=== PATIENT | male | born 1935 | race Caucasian/White ===

== ENCOUNTER 2018-06-19 10:14 | Emergency (ER) | payer OTHER ==
[2018-06-19] MEDS ORDERED: NA CHLORIDE 0.9% 1,000 ML ONE (11:12)
--- NOTE | 2018-06-19 11:37 | RAD REPORT ---
EXAM DESCRIPTION: CT - CTHCSPWOC - 06/19/2018 11:22 am CLINICAL HISTORY: Trauma, head and neck injury. fall, syncope COMPARISON: Soft Tissue Neck Wo Contr dated 04/28/2017; Soft Tissue Neck Wo Contr dated 09/23/2016; So ft Tissue Neck W/Contr dated 06/24/2016; SOFT TISSUE NECK W CONTRAST dated 10/16/2015 TECHNIQUE: Axial 5 mm thick images of the head were obtained. Axial 2 mm thick images of the cervical spine were obtained with sagittal and coronal reconstruction images generated and reviewed. All CT scans are performed using dose optimization technique as appropriate and may include automated exposure control or mA/KV adjustment according to patient size. FINDINGS: CT HEAD WITHOUT CONTRAST: No acute hemorrhage, hydrocephalus or extra-axial collection is identified.Moderate generalized brain atrophy is present with moderate periventricular and deep white matter chronic microvascular ischemi c changes.No areas of brain edema or midline shift. The paranasal sinuses and mastoids are clear.The calvarium is intact. Atherosclerosis. CT CERVICAL SPINE WITHOUT CONTRAST: No fracture or subluxation.Mild lower cervical degenerative changes.No prevertebral soft tissues swel ling is identified. Bilateral pleural effusions noted. IMPRESSION: No acute intracranial or cervical spine findings.
--- NOTE | 2018-06-19 12:05 | RAD REPORT ---
EXAM DESCRIPTION: RAD - Chest Single View - 06/19/2018 11:54 am CLINICAL HISTORY: weakness Chest pain. COMPARISON: Chest Pa And Lat (2 Views) dated 05/21/2017; CHEST PA AND LAT 2 VIEW dated 06/13/2015; JYOTHI ST PA AND LAT 2 VIEW dated 06/06/2015; CHEST PA AND LAT 2 VIEW dated 06/04/2015 FINDINGS: Portable technique limits examination quality. Bibasilar lung opacities are present with bilateral pleural effusions. The heart is normal in size. N o displaced fractures.Aortic atherosclerosis. IMPRESSION: Bilateral pleural effusions.
[2018-06-19 12:09] LABS: Absolute Lymphocytes (CBC) 0.4 K/uL (0.7-4.9); Absolute Monocytes 0.8 K/uL (0.1-1.3); Absolute Neutrophil 9.6 K/uL (1.8-8.0); Basophils % 0.3 % (0-1.3); Eosinophils % 0.3 % (0-4.4); Hematocrit 28.6 % (39.6-49.0); Lymphocytes % 3.6 % (15.3-44.8); MCH 31.4 pg (27.0-35.0); MCV 92.6 fL (80-100); MPV 6.6 fL (7.6-11.3); RBC Red Blood Cell Count 3.09 M/uL (4.33-5.43)
[2018-06-19 12:12] LABS: Protime INR 1.1
[2018-06-19 12:44] LABS: ALT/SGPT 11 U/L (12-78); AST/SGOT 20 U/L (15-37); Albumin 2.7 g/dL (3.4-5.0); Alkaline Phosphatase 71 U/L (45-117); BUN Blood Urea Nitrogen 24 mg/dL (7-18); Bicarbonate 25 mmol/L (21-32); Bilirubin Direct < 0.1 mg/dL (0-0.2); Bilirubin Total 0.3 mg/dL (0.2-1.0); Glucose Level 111 mg/dL (74-106); Magnesium 2.4 mg/dL (1.8-2.4); NT PRO-BNP 907 pg/mL (<450); Potassium 4.2 mmol/L (3.5-5.1); Sodium Level 134 mmol/L (136-145); Troponin (Emerg Dept Use Only) < 0.02 ng/mL (0.0-0.045)
--- NOTE | 2018-06-19 13:51 | RAD REPORT ---
EXAM DESCRIPTION: MRI - Brain W/Wo Cont - 06/19/2018 1:35 pm CLINICAL HISTORY: History of head and neck cancer, syncope, possible metastatic disease, recurring h eadaches COMPARISON: CT head same date, MRI 2017 TECHNIQUE: Sagittal and axial T1-weighted images were obtained. Axial PD/heavily T2-weighted and T2- FLAIR images were obtained along with axial DWI/ADC mapping sequences. Coronal heavily T2 weighted s equence obtained. Axial and coronal post-contrast T1-weighted images were also obtained. A 14 ml Mul tihance contrast following utilized. FINDINGS: No intracranial hemorrhage, mass or acute infarction. There is no edema or shift of midli ne structures. No extra-axial fluid collections. Lanza-matter/white matter junction is preserved. Sig nal voids are seen as a normal finding in the major intracranial vessels. Moderate atrophy changes ar e present. Ventricular size is in proportion to volume loss. Patient has a very minimal chronic ische janice pattern. No globe or orbital content acute finding. Post-contrast images show normal enhancement. No dural thickening. Mastoid air cells and paranasal sinuses are clear. IMPRESSION: No findings of metastatic disease identified. No acute infarction, hemorrhage or acute intracranial finding. Atrophy changes are present with very minimal chronic ischemic change.
--- NOTE | 2018-06-19 14:15 | ER ---
Nurse's Notes [facility] Name: Ciro Solano Age: 82 yrs Sex: Male : 1935 Arrival Date: 06/19/2018 Time: 10:17 Bed 5 Private MD: Saul Sam H Diagnosis: Syncope and collapse;Dehydration Presentation: 06/19 10:52 Presenting complaint: Patient states: hx of tongue cancer and lung cancer, has had iw increased weakness over past 2 weeks, this morning around 0600, he had a syncopal episode while trying to walk to the bathroom, pt fell to ground, skin tear to right elbow, had to call for lift assist to help him up, pt also c/o headache X 2 weeks, not eating well because of pain to throat, pt currently on radiation for lung cancer, has MRI scheduled for today. Transition of care: patient was not received from another setting of care. Onset of symptoms was June 08, 2018. Risk Assessment: Do you want to hurt yourself or someone else? Patient reports no desire to harm self or others. Initial Sepsis Screen: Does the patient meet any 2 criteria? No. Patient's initial sepsis screen is negative. Does the patient have a suspected source of infection? No. Patient's initial sepsis screen is negative. Care prior to arrival: None. 10:52 Method Of Arrival: Wheelchair iw 10:52 Acuity: GOPAL 3 iw Historical: - Allergies: 11:00 NKA; iw - Home Meds: 11:07 prednisone 5 mg oral tab once daily [Active]; levothyroxine 137 mcg tab 1 tab once iw daily [Active]; sulfasalazine 500 mg Oral tab 1 tab 4 times per day [Active]; Clonazepam Oral [Active]; - PMHx: 11:07 tongue cancer; lung cancer; Hypothyroidism; Rheumatoid Arthritis; skin cancer; iw - PSHx: 11:07 spinal fusion; Appendectomy; colon resection; iw - Immunization history:: Adult Immunizations not up to date. - Social history:: Smoking status: Patient uses tobacco products, chewing tobacco. - Ebola Screening: : Patient negative for fever greater than or equal to 101.5 degrees Fahrenheit, and additional compatible Ebola Virus Disease symptoms Patient denies exposure to infectious person Patient denies travel to an Ebola-affected area in the 21 days before illness onset No symptoms or risks identified at this time. Screenin:10 Abuse screen: Denies threats or abuse. Nutritional screening: No deficits noted. aa5 Tuberculosis screening: No symptoms or risk factors identified. Fall Risk Fall in past 12 months (25 points). IV access (20 points). Ambulatory Aid- Crutches/Cane/Walker (15 pts). Total Sanchez Fall Scale indicates High Risk Score (45 or more points). Fall prevention measures have been instituted. Side Rails Up X 2 Placed Close to Nursing Station. Assessment: 11:00 General: Appears comfortable, Behavior is calm, cooperative. Pain: Complains of pain in aa5 whole head Pain does not radiate. Pain currently is 7 out of 10 on a pain scale. Quality of pain is described as aching, Pain began today after fall Is continuous. Neuro: Level of Consciousness is awake, alert, obeys commands, Oriented to person, place, time, situation, After School Program Assistant are equal bilaterally Moves all extremities. Speech is normal, Facial symmetry appears normal, Pupils are PERRLA, Reports dizziness when standing up and generalized weakness x 2 weeks ago. Pt reports fall today. Pt states "my legs just gave out and I fell" . Cardiovascular: Heart tones S1 S2 present Rhythm is regular. Respiratory: Airway is patent Respiratory effort is even, unlabored, Respiratory pattern is regular, symmetrical, Breath sounds are clear bilaterally. GI: Abdomen is flat, non-distended, Bowel sounds present X 4 quads. Abd is soft and non tender X 4 quads. : No signs and/or symptoms were reported regarding the genitourinary system. EENT: No signs and/or symptoms were reported regarding the EENT system. Derm: Skin is pink, warm \\T\\ dry. skin tears noted to sascha elbows, no active bleeding noted at this time. Bruising that is dark purple noted to sascha arms. Dime-sized bruising that is mildly purple noted to left cheek. Musculoskeletal: Range of motion: intact in all extremities. 11:10 Reassessment: Wound care to sascha elbows completed. Dressed with Neosporin, non-adherent aa5 dressing, Kerlix, and tape. . 11:35 Reassessment: Pt back from CT scan via stretcher . aa5 11:35 Reassessment: Patient and/or family updated on plan of care and expected duration. Pain aa5 level reassessed. Patient is alert, oriented x 3, equal unlabored respirations, skin warm/dry/pink. Pain: Pain currently is 7 out of 10 on a pain scale. 12:30 Reassessment: Patient and/or family updated on plan of care and expected duration. Pain aa5 level reassessed. Patient is alert, oriented x 3, equal unlabored respirations, skin warm/dry/pink. Pt states "my pain is okay right now" . Pain: Pain currently is 4 out of 10 on a pain scale. 13:30 Reassessment: Pt currently in MRI. aa5 14:45 Reassessment: Patient is alert, oriented x 3, equal unlabored respirations, skin aa5 warm/dry/pink. Vital Signs: 11:00 BP 153 / 60; Pulse 93; Resp 16 S; Temp 97.7; Pulse Ox 97% on R/A; Weight 63.05 kg; iw Height 5 ft. 10 in. (177.80 cm); Pain 7/10; 12:30 BP 142 / 51; Pulse 78; Resp 16 S; Pulse Ox 96% on R/A; aa5 14:10 BP 141 / 60; Pulse 79; Resp 17; Pulse Ox 96% on R/A; Pain 0/10; ss 11:00 Body Mass Index 19.94 (63.05 kg, 177.80 cm) iw ED Course: 10:17 Patient arrived in ED. mr 10:18 Saul Sam DO is Private Physician. mr 10:50 Ankita Jarvis, KERRI is Primary Nurse. aa5 10:57 Michel Anand PA is PHCP. [facility] 10:57 Michel Negron MD is Attending Physician. [facility] 10:59 Triage completed. iw 11:00 Arm band placed on. iw 11:00 Patient has correct armband on for positive identification. Placed in gown. Bed in low aa5 position. Call light in reach. Side rails up X2. 11:00 night monitor on. Pulse ox on. NIBP on. aa5 11:22 CT Head C Spine In Process Unspecified. EDMS 11:25 EKG done, by advanced manufacturing technician. reviewed by Michel ORNELAS. at1 11:50 Missed attempt(s): 22 gauge 2 missed attempts by ROB Manzanares . Bleeding controlled, aa5 band aid applied, catheter tip intact. 11:52 X-ray completed. Portable x-ray completed in exam room. jb2 11:54 XRAY Chest (1 view) In Process Unspecified. EDMS 12:00 Inserted saline lock: 22 gauge in left upper arm, using aseptic technique. IV inserted aa5 by Julita Gasca RN. 13:12 Patient moved to MRI via wheelchair. em2 13:31 Brain W/Wo Cont In Process Unspecified. EDMS 14:13 Saul Sam DO is Referral Physician. jmm 14:47 No provider procedures requiring assistance completed. aa5 14:47 IV discontinued, intact, bleeding controlled, No redness/swelling at site. Pressure aa5 dressing applied. Administered Medications: 12:03 Drug: NS 0.9% 1000 ml Route: IV; Rate: 1 bolus; Site: left upper arm; ss Outcome: 14:14 Discharge ordered by MD. [facility] 14:45 Discharged to home via wheelchair, with family. aa5 14:45 Condition: stable 14:45 Discharge instructions given to patient, Instructed on discharge instructions, follow up and referral plans. Demonstrated understanding of instructions, follow-up care. 14:47 Patient left the ED. aa5 Signatures: Dispatcher [employer] EDMS Michel Anand PA PA [facility] José Manuel Ashley Goins, Delfin jb2 Julita Gasca, Ankita Pinedo RN, RN RN aa5 Phuong Phillips RN RN ss Montes, Enrique em2 Danielle Marinelli, enrollment eligibility representative EKG Tat1 Corrections: (The following items were deleted from the chart) 15:00 14:54 Patient left the ED. aa5 aa5
--- NOTE | 2018-06-19 14:15 | EDPHYS ---
Physician Documentation [facility] Name: Ciro Solano Age: 82 yrs Sex: Male : 1935 Arrival Date: 06/19/2018 Time: 10:17 Bed 5 Private MD: Saul Sam H ED Physician Michel Negron HPI: 06/19 10:57 This 82 yrs old Male presents to ER via Wheelchair with complaints of General jmm Weakness, Dizziness, Fall Injury. 10:57 The patient has experienced syncope, collapsed. Onset: The symptoms/episode jmm began/occurred acutely, just prior to arrival. This is an 82 year old male with a history of tongue cancer, lung cancer that presents to the ED after a syncopal episode which occurred just prior to arrival. Patient denies chest pain or abdominal pain but states he has been constipated over the past week. . 10:57 Patient states having new headaches over the past 2 weeks. States he does not eat or jmm drink much due to pain on swallowing. . Historical: - Allergies: 11:00 NKA; iw - Home Meds: 11:07 prednisone 5 mg oral tab once daily [Active]; levothyroxine 137 mcg tab 1 tab once iw daily [Active]; sulfasalazine 500 mg Oral tab 1 tab 4 times per day [Active]; Clonazepam Oral [Active]; - PMHx: 11:07 tongue cancer; lung cancer; Hypothyroidism; Rheumatoid Arthritis; skin cancer; iw - PSHx: 11:07 spinal fusion; Appendectomy; colon resection; iw - Immunization history:: Adult Immunizations not up to date. - Social history:: Smoking status: Patient uses tobacco products, chewing tobacco. - Ebola Screening: : Patient negative for fever greater than or equal to 101.5 degrees Fahrenheit, and additional compatible Ebola Virus Disease symptoms Patient denies exposure to infectious person Patient denies travel to an Ebola-affected area in the 21 days before illness onset No symptoms or risks identified at this time. ROS: 11:08 Cardiovascular: Negative for chest pain, palpitations, and edema, Respiratory: Negative jmm for shortness of breath, cough, wheezing, and pleuritic chest pain. 11:08 Constitutional: Positive for 11:08 Constitutional: Positive for malaise. 11:08 Abdomen/GI: Positive for constipation. 11:08 Neuro: Positive for weakness. 11:08 All other systems are negative. Exam: 11:08 Constitutional: This is a well developed, well nourished patient who is awake, alert, jmm and in no acute distress. Head/Face: atraumatic. 11:08 Chest/axilla: Normal chest wall appearance and motion. 11:08 ENT: Mouth: Oral mucosa: dry. 11:08 Cardiovascular: Rate: normal, Rhythm: regular. 11:08 Respiratory: the patient does not display signs of respiratory distress, Respirations: normal, Breath sounds: are clear throughout. 11:08 Abdomen/GI: Inspection: abdomen appears normal, Bowel sounds: normal, Palpation: abdomen is soft and non-tender. 11:08 Back: ROM is normal. 11:08 Musculoskeletal/extremity: ROM: intact in all extremities. 11:08 Skin: Appearance: Color: normal in color. 11:08 Neuro: Orientation: is normal, Mentation: is normal, Memory: is normal. 11:08 Psych: Behavior/mood is pleasant, cooperative. Vital Signs: 11:00 BP 153 / 60; Pulse 93; Resp 16 S; Temp 97.7; Pulse Ox 97% on R/A; Weight 63.05 kg; iw Height 5 ft. 10 in. (177.80 cm); Pain 7/10; 12:30 BP 142 / 51; Pulse 78; Resp 16 S; Pulse Ox 96% on R/A; aa5 14:10 BP 141 / 60; Pulse 79; Resp 17; Pulse Ox 96% on R/A; Pain 0/10; ss 11:00 Body Mass Index 19.94 (63.05 kg, 177.80 cm) iw MDM: 10:[address] [facility] 14:13 Data reviewed: vital signs, nurses notes. Counseling: I had a detailed discussion with mika the patient and/or guardian regarding: the historical points, exam findings, and any diagnostic results supporting the discharge/admit diagnosis, radiology results, the need for outpatient follow up, to return to the emergency department if symptoms worsen or persist or if there are any questions or concerns that arise at home. 14:13 Data reviewed: lab test result(s), EKG, radiologic studies, CT scan, MRI, plain films. [facility] 14:13 ED course: After administration of IVF that patient states he feels much better. Labs, jm PE findings, and HPI appear consistent with dehydration. MRI brain negative for CVA or Metastasis. Patient was advised of the need for admission due to weakness, fall risk, and dehydration. Patient declined. Patient is encouraged to increase fluid intake. Patient and son understood and agrees with the plan of care. . 06/19 10:58 Order name: Basic Metabolic Panel; Complete Time: 12:55 [facility] 06/19 10:58 Order name: CBC with Diff; Complete Time: 12:33 [facility] 06/19 10:58 Order name: LFT's; Complete Time: 12:55 [facility] 06/19 10:58 Order name: Magnesium; Complete Time: 12:55 [facility] 06/19 10:58 Order name: NT PRO-BNP; Complete Time: 12:55 [facility] 06/19 10:58 Order name: PT-INR; Complete Time: 12:33 [facility] 06/19 10:58 Order name: Troponin (emerg Dept Use Only); Complete Time: 12:55 [facility] 06/19 10:58 Order name: XRAY Chest (1 view); Complete Time: 12:33 [facility] 06/19 10:58 Order name: Lactate; Complete Time: 12:35 [facility] 06/19 10:58 Order name: Procalcitonin; Complete Time: 12:55 [facility] 06/19 10:58 Order name: CT Head C Spine; Complete Time: 11:59 [facility] 06/19 13:30 Order name: Brain W/Wo Cont; Complete Time: 13:53 EDMS 06/19 10:58 Order name: EKG; Complete Time: 10:59 [facility] 06/19 10:58 Order name: Cardiac monitoring; Complete Time: 11:43 [facility] 06/19 10:58 Order name: EKG - Nurse/Tech; Complete Time: 11:43 [facility] 06/19 10:58 Order name: IV Saline Lock; Complete Time: 12:06 [facility] 06/19 10:58 Order name: Labs collected and sent; Complete Time: 12:06 [facility] 06/19 10:58 Order name: O2 Per Protocol; Complete Time: 11:43 [facility] 06/19 10:58 Order name: O2 Sat Monitoring; Complete Time: 11:43 jm Administered Medications: 12:03 Drug: NS 0.9% 1000 ml Route: IV; Rate: 1 bolus; Site: left upper arm; ss Disposition: 06/20 13:09 Co-signature as Attending Physician, Michel Negron MD I agree with the assessment and kdr plan of care. Disposition: 06/19/18 14:14 Discharged to Home. Impression: Syncope and collapse, Dehydration. - Condition is Stable. - Discharge Instructions: Dehydration, Elderly, Syncope. - Medication Reconciliation Form, Thank You Letter, Antibiotic Education, Prescription Opioid Use form. - Follow up: Saul Sam DO; When: 2 - 3 days; Reason: Recheck today's complaints, Continuance of care, Re-evaluation by your physician. Signatures: Dispatcher [employer] EDMT Michel Negron MD MD [facility] Michel Anand PA PA [facility] Julita Gasca, RN RN iw Ankita Jarvis RN RN aa5 Phuong Phillips RN RN ss Corrections: (The following items were deleted from the chart) 06/19 13:30 12:00 Brain Wo Cont+MRI.RAD.BRZ ordered. [facility] 14:54 14:14 06/19/2018 14:14 Discharged to Home. Impression: Syncope and collapse; aa5 Dehydration. Condition is Stable. Forms are Medication Reconciliation Form, Thank You Letter, Antibiotic Education, Prescription Opioid Use. Follow up: Saul Sam; When: 2 - 3 days; Reason: Recheck today's complaints, Continuance of care, Re-evaluation by your physician. [facility]
--- NOTE | 2018-06-19 14:27 | EKG ---
Test Date: 2018-06-19 Test Time: 11:11:28 [employer]: SENG MEASUREMENT RESULTS: Intervals: Rate: 88 CO: 156 QRSD: 92 QT: 348 QTc: 421 [place]: P: 65 CO: 156 QRS: 55 T: 84 INTERPRETIVE STATEMENTS: Sinus rhythm with premature supraventricular complexes T wave abnormality, consider anterior ischemia Abnormal ECG Compared to ECG 05/02/2016 11:17:01 Atrial premature complex(es) now present T-wave abnormality now present Possible ischemia now present Electronically Signed On 06-19-18 14:26:11 CDT by Richard Tellez
[2018-06-19 14:58] VITALS: TEMP 97.7
[2018-06-19 14:59] VITALS: O2SAT 96
[2018-06-19 15:00] VITALS: BP 141/60
== END 2018-06-19 14:54 | disposition home or self-care (01) ==
LOC: ER 10:14
DX: E86.0 Dehydration (principal); E03.9 Hypothyroidism, unspecified; Z72.0 Tobacco use; Z85.810 Personal history of malignant neoplasm of tongue; Z85.118 Personal history of other malignant neoplasm of bronchus and lung; Z85.828 Personal history of other malignant neoplasm of skin
CPT/HCPCS: 36415; 70450; 70553; 71045; 72125; 80048; 80076; 83605; 83735; 83880; 84145; 84484; 85025; 85610; 93005; 99285; A9577; J7030

== ENCOUNTER 2018-07-27 18:11 | Emergency (ER) | payer OTHER ==
--- NOTE | 2018-07-27 19:23 | RAD REPORT ---
EXAM DESCRIPTION: CT - Head C Spine Cap Wo Con - 07/27/2018 6:54 pm CLINICAL HISTORY: Trauma, head and neck injury. Chest, abdomen and pelvis pain. PAIN COMPARISON: Rad Therapy [facility] Head dated 05/27/2018; Rad Therapy [place] Head dated 07/15/2017; Rad Therapy [place] Head dated 06/17/2017; Abdomen Rp Biopsy Percut dated 11/08/2016; Chest Single V iew dated 06/19/2018; Rad Therapy [place] [facility] Chest dated 08/04/2017 TECHNIQUE: CT head without contrast. CT cervical spine without contrast with coronal and sagittal reformatted images. CT chest, abdomen and pelvis without contrast with coronal and sagittal reformatted images of the [facility] [place]. All CT scans are performed using dose optimization technique as appropriate and may include automated exposure control or mA/KV adjustment according to patient size. FINDINGS: CT HEAD WITHOUT CONTRAST: No intracranial hemorrhage, hydrocephalus or extra-axial fluid collection. No areas of brain edema o r midline shift. The paranasal sinuses and mastoids are clear. The calvarium is intact. CT CERVICAL SPINE WITHOUT CONTRAST: No fracture or subluxation. Mild cervical degenerative changes are present. The prevertebral soft tis sues are normal in thickness. CT CHEST, ABDOMEN, PELVIS WITHOUT CONTRAST: NOTE: Lack of contrast is a significant limitation in the assessment of trauma related findings. Spec ifically, solid organ, vascular and bowel evaluation is significantly limited. Small to moderate bilateral pleural effusions are present.Areas of airspace opacity is seen in the ri ght mid lung and in the left lung base.No pneumothorax. No evidence of intra-abdominal visceral injury, free fluid or free air is seen within the above detai led limitations. Cortical cyst is present on the right. Aortic atherosclerosis is noted. No concerning pelvic findings. Moderate lumbar degenerative changes are present. IMPRESSION: Negative for acute traumatic findings within the above detailed limitations. Small to moderate bilateral pleural effusions. Opacity in the left base could represent an area of pn eumonia/infiltrate.
--- NOTE | 2018-07-27 19:24 | RAD REPORT ---
EXAM DESCRIPTION: RAD - Pelvis - 07/27/2018 6:30 pm CLINICAL HISTORY: S/P FALL Trauma, fall, pelvic pain. COMPARISON: No comparisons FINDINGS: Osteoarthritic changes involves both hips. No fracture or dislocation seen.
[2018-07-27 19:35] LABS: Absolute Lymphocytes (CBC) 0.3 K/uL (0.7-4.9); Absolute Monocytes 0.6 K/uL (0.1-1.3); Absolute Neutrophil 6.1 K/uL (1.8-8.0); Basophils % 0.8 % (0-1.3); Eosinophils % 0.9 % (0-4.4); Hematocrit 29.7 % (39.6-49.0); Lymphocytes % 4.1 % (15.3-44.8); MCH 31.4 pg (27.0-35.0); MCV 93.9 fL (80-100); MPV 6.1 fL (7.6-11.3); RBC Red Blood Cell Count 3.16 M/uL (4.33-5.43)
[2018-07-27 19:38] LABS: Protime INR 1.12
[2018-07-27 20:04] LABS: Potassium 4.5 mmol/L (3.5-5.1)
[2018-07-27 20:06] LABS: Anisocytosis 1+; Blood Morphology Comment NOT SEEN (NOT SEEN); Hypochromasia 1+; Platelet Estimate INCR; Platelets, Giant NOTED; Urine White Blood Cell Casts OK
[2018-07-27 20:14] LABS: Urine Blood NEGATIVE (NEG); Urine Glucose NEGATIVE (NEG); Urine Protein 1+ (NEG); Urine Specific Gravity >1.030 (1.005-1.030); Urine pH 5.5 (5.0-7.0)
[2018-07-27 20:17] LABS: Urine Bacteria <20 /HPF (NONE SEEN); Urine Culture Reflex Order NOT NEEDED; Urine Mucus MOD /HPF (NONE SEEN); Urine RBC <5 /HPF (NONE SEEN)
[2018-07-27] MEDS ORDERED: NA CHLORIDE 0.9% 1,000 ML ONE (20:54)
[2018-07-27] MEDS ORDERED: LIDOCAINE 2% W/EPI 1:200,000 MPF 20 ML VIAL IM ONE (21:08)
--- NOTE | 2018-07-27 21:41 | ER ---
Nurse's Notes [facility] Name: Ciro Solano Age: 83 yrs Sex: Male : 1935 Arrival Date: 07/27/2018 Time: 18:16 Bed 5 Private MD: Diagnosis: Laceration without foreign body of other part of head Presentation: 07/27 18:24 Presenting complaint: EMS states: [facility]- pt was found laying down on the ground ch by his walker, states he tripped on something he thinks. hit his head on the counter, there was a large puddle of blood and a very deep wound on his forehead. pt is on hospice care for throat and lung cancer now. Care prior to arrival: None. Mechanism of Injury: Fall from standing position. Trauma event details: Injury occurred in the [facility], Injury occurred: at home. Injury occurred: July 27, 2018 Injury occurred at: 17:30. 18:24 Acuity: GOPAL 2 18:24 Method Of Arrival: EMS: [facility] 18:31 Transition of care: patient was not received from another setting of care. Onset of ch symptoms was July 27, 2018 at 17:30. Risk Assessment: Do you want to hurt yourself or someone else? Patient reports no desire to harm self or others. Initial Sepsis Screen: Does the patient meet any 2 criteria? No. Patient's initial sepsis screen is negative. Does the patient have a suspected source of infection? No. Patient's initial sepsis screen is negative. Trauma Activation: Alert Physician: ED Physician; Name: ; Notified At: ; Arrived At: Physician: General Surgeon; Name: ; Notified At: ; Arrived At: Physician: Radiology; Name: ; Notified At: ; Arrived At: Physician: Respiratory; Name: ; Notified At: ; Arrived At: Physician: Lab; Name: ; Notified At: ; Arrived At: Historical: - Allergies: 18:33 NKA; ch - Home Meds: 18:33 Clonazepam Oral [Active]; levothyroxine 137 mcg tab 1 tab once daily [Active]; ch prednisone 5 mg Oral tab once daily [Active]; hyoscyamine sulfate oral oral [Active]; - PMHx: 18:33 Hypothyroidism; Lung Cancer; Rheumatoid Arthritis; skin cancer; Tongue Cancer; hospice care; - Immunization history: Last tetanus immunization: - up to date. - Social history:: Smoking status: Patient uses tobacco products, former smoker. - Ebola Screening: : Patient negative for fever greater than or equal to 101.5 degrees Fahrenheit, and additional compatible Ebola Virus Disease symptoms Patient denies exposure to infectious person Patient denies travel to an Ebola-affected area in the 21 days before illness onset No symptoms or risks identified at this time. Screenin:24 Abuse screen: Denies threats or abuse. Denies injuries from another. Tuberculosis ch screening: No symptoms or risk factors identified. 18:37 Nutritional screening: No deficits noted. Fall Risk None identified. Primary Survey: 18:24 A: Airway: patent. Breathing/Chest: Respiratory pattern: regular, Respiratory effort: ch spontaneous, unlabored, Breath sounds: diminished, bilaterally. wheezes. Circulation: Heart tones present. Pulses: palpable bilateral radial, brachial, femoral, popliteal, posterior tibial and and dorsalis pedis arteries.. Skin color: pale, Skin temperature: warm, dry. Disability Alert. 19:15 Reassessment Breathing/Chest Respiratory pattern Regular. rr5 Secondary Survey: 18:24 HEENT: Head Other pt has large laceration to forehead. : No signs and/or symptoms ch were reported regarding the genitourinary system. Musculoskeletal: Circulation, motion, and sensation intact. Capillary refill < 3 seconds, in bilateral fingers. toes. pt has multiple skin tears, to sascha hands/knuckles, L elbow and fore arm, to R arm, and to bridge of nose. all are superficial and not bleeding at this time. Assessment: 18:24 General: Appears in no apparent distress. comfortable, Behavior is calm, cooperative, ch appropriate for age. Pain: Complains of pain in forehead, left eye and left side of forehead Pain currently is 6 out of 10 on a pain scale. Pain began suddenly. Neuro: Level of Consciousness is awake, alert, obeys commands, Oriented to person, place, time, situation, Care Attendant are equal bilaterally Moves all extremities. Speech is normal, Facial symmetry appears normal, Facial symmetry: tongue is midline, Pupils are PERRLA, Reports headache in left frontal area. 18:37 Reassessment: Patient appears in no apparent distress at this time. Patient and/or ch family updated on plan of care and expected duration. Pain level reassessed. Patient is alert, oriented x 3, equal unlabored respirations, skin warm/dry/pink. 18:47 Reassessment: Patient appears in no apparent distress at this time. jose e attempted blood draw. iv initiated, would not pull. ct in room, taking pt to ct now. 19:24 Reassessment: Patient appears in no apparent distress at this time. report given to newton lujan and Ailyn. 19:24 General: Appears in no apparent distress. comfortable, Behavior is calm, cooperative, rr5 appropriate for age. Pain: Complains of pain in middle aspect of left eyebrow and outer aspect of left eyebrow Pain currently is 5 out of 10 on a pain scale. Quality of pain is described as aching, Pain began suddenly. Neuro: Level of Consciousness is awake, alert, obeys commands, Oriented to person, place, time, situation, Care Attendant are equal bilaterally Moves all extremities. Speech is normal, Facial symmetry appears normal, Pupils are PERRLA, Reports. Cardiovascular: Capillary refill < 3 seconds Patient's skin is warm and dry. 19:24 Respiratory: Airway is patent Respiratory effort is even, unlabored, Respiratory rr5 pattern is regular, symmetrical. GI: No signs and/or symptoms were reported involving the gastrointestinal system. : EENT: No signs and/or symptoms were reported regarding the EENT system. Derm: Skin has skin tears on left and right arm hematoma and skin peeled noted. Derm: Wound noted middle aspect of left eyebrow and outer aspect of left eyebrow Wound is lacerated wound. Musculoskeletal: Capillary refill < 3 seconds, Range of motion: intact in all extremities. Injury Description: Laceration sustained to middle aspect of left eyebrow and outer aspect of left eyebrow is 0.5 to 2.5 cm long. 21:00 Reassessment: Patient appears in no apparent distress at this time. Patient and/or rr5 family updated on plan of care and expected duration. Pain level reassessed. Patient is alert, oriented x 3, equal unlabored respirations, skin warm/dry/pink. cleaned the laceration site, bleeding controlled. C-collar cleared by dr. merchant and removed. 21:53 Reassessment: Patient appears in no apparent distress at this time. Patient and/or rr5 family updated on plan of care and expected duration. Pain level reassessed. Patient is alert, oriented x 3, equal unlabored respirations, skin warm/dry/pink. suturing done aseptically by dr. merchant using prolene4.0, 6 stitches made. pressure dressing done. patient is discharge awaiting for relative to pick him up. Patient states feeling better. Patient states symptoms have improved. Vital Signs: 18:24 BP 147 / 64; Pulse 78; Resp 22; Temp 97.5; Pulse Ox 96% on R/A; Weight 63.5 kg; Height 6 ft. 1 in. (185.42 cm); Pain 3/10; 19:30 BP 135 / 56; Pulse 74; Resp 16; Temp 98; Pulse Ox 98% on R/A; rr5 20:30 BP 118 / 65; Pulse 73; Resp 17; Pulse Ox 99% on R/A; cc3 21:24 BP 141 / 88; Pulse 75; Resp 18; Pulse Ox 98% on R/A; rr5 18:24 Body Mass Index 18.47 (63.50 kg, 185.42 cm) [place] Coma Score: 18:24 Eye Response: spontaneous(4). Verbal Response: oriented(5). Motor Response: obeys commands(6). Total: 15. Trauma Score (Adult): 18:24 Eye Response: spontaneous(1); Verbal Response: oriented(1); Motor Response: obeys commands(2); Systolic BP: > 89 mm Hg(4); Respiratory Rate: 10 to 29 per min(4); Travis Score: 15; Trauma Score: 12 ED Course: 18:16 Patient arrived in ED. iw 18:23 Mateo Merchant MD is Attending Physician. gs 18:24 Chiquis Callejas, KERRI is Primary Nurse. 18:24 Patient has correct armband on for positive identification. Bed in low position. Call light in reach. Side rails up X2. Patient maintains SpO2 saturation greater than 95% on room air. Pulse ox on. NIBP on. 18:24 Patient maintains SpO2 saturation greater than 95% on room air. Thermoregulation: warm blanket given to patient. 18:26 Triage completed. 18:29 X-ray completed. Portable x-ray completed in exam room. Patient tolerated procedure ml well. 18:36 Arm band placed on left wrist. Patient placed in an exam room, on a stretcher, on school bus monitor, on pulse oximetry. 18:37 No apparent distress. Resting quietly. ch 18:37 Warm blanket given. ch 18:37 No provider procedures requiring assistance completed. ch 18:45 Patient moved to ME via stretcher. ka 18:48 Inserted saline lock: 22 gauge in right forearm, using aseptic technique. ch 18:54 CT completed. Patient tolerated procedure well. Patient moved back from ME. ka 19:14 EKG done, by ED staff, reviewed by Joseph Norris MD. ds4 19:28 Urine Microscopic Only Sent. ds4 19:37 Sushant Mata, KERRI is Primary Nurse. rr5 20:50 suturing done aseptically by dr. merchant using prolene4.0 6 stitches made. rr5 22:30 IV discontinued, bleeding controlled, Pressure dressing applied. rr5 Administered Medications: Discontinued: NS 0.9% 1000 ml IV at 1 bolus Per protocol; 1000 mL bolus 21:01 CANCELLED (Other Intervention Used): Lidocaine-Epinephrine -1%: (1:100,000) 1 vials 20 rr5 ml Infiltration once; to bedside 21:20 Drug: NS 0.9% 1000 ml Route: IV; Rate: 1 bolus; Site: right forearm; rr5 22:40 Follow up: Response: No adverse reaction; Other; IV Status: Order to discontinue rr5 infusion; IV Intake: 300ml ; discharged 21:50 Drug: Lidocaine-Epinephrine -2 % (1:100,000) 10 ml Route: Infiltration; rr5 22:40 Follow up: Response: No adverse reaction rr5 Point of Care Testing: Blood Glucose: 19:35 Blood Glucose: 100 mg/dL; lp1 Ranges: Intake: 18:24 PO: 0ml; Total: 0ml. ch 22:40 IV: 300ml; Total: 300ml. rr5 Outcome: 21:41 Discharge ordered by . 22:45 Discharged to home via wheelchair, with family. rr5 22:45 Condition: stable 22:45 Instructed on discharge instructions, follow up and referral plans. medication usage, Demonstrated understanding of instructions, follow-up care, medications, Prescriptions given X 1. 22:45 Patient's length of stay was not longer than 2 hours. 22:48 Patient left the ED. rr5 Signatures: Chiquis Callejas RN RN Julita Gasca, RN RN iw Shar, Eun Azevedo, Ailyn, KERRI RN lp1 Alek Reyna ds4 Jacqueline Jean Baptiste Gregory, MD MD Maddie Vaz cc3 Sushant Mata, KERRI RN rr5
--- NOTE | 2018-07-27 21:42 | EDPHYS ---
Physician Documentation [facility] Name: Ciro Solano Age: 83 yrs Sex: Male : 1935 Arrival Date: 07/27/2018 Time: 18:16 Bed 5 Private MD: ED Physician Mateo Dudley HPI: 07/27 21:27 This 83 yrs old Male presents to ER via EMS with complaints of Fall Injury. gs 21:27 Details of fall: The patient fell from an upright position. Onset: The symptoms/episode gs began/occurred acutely, just prior to arrival. Associated injuries: The patient sustained injury to the head, neck injury, injury to the chest. Severity of symptoms: At their worst the symptoms were moderate, in the emergency department the symptoms are unchanged. Historical: - Allergies: 18:33 NKA; ch - Home Meds: 18:33 Clonazepam Oral [Active]; levothyroxine 137 mcg tab 1 tab once daily [Active]; ch prednisone 5 mg Oral tab once daily [Active]; hyoscyamine sulfate oral oral [Active]; - PMHx: 18:33 Hypothyroidism; Lung Cancer; Rheumatoid Arthritis; skin cancer; Tongue Cancer; hospice care; - Immunization history: Last tetanus immunization: - up to date. - Social history:: Smoking status: Patient uses tobacco products, former smoker. - Ebola Screening: : Patient negative for fever greater than or equal to 101.5 degrees Fahrenheit, and additional compatible Ebola Virus Disease symptoms Patient denies exposure to infectious person Patient denies travel to an Ebola-affected area in the 21 days before illness onset No symptoms or risks identified at this time. ROS: 21:39 All other systems are negative. gs Exam: 21:39 Eyes: Pupils equal round and reactive to light, extra-ocular motions intact. Lids and gs lashes normal. Conjunctiva and sclera are non-icteric and not injected. Cornea within normal limits. Periorbital areas with no swelling, redness, or edema. ENT: Nares patent. No nasal discharge, no septal abnormalities noted. Tympanic membranes are normal and external auditory canals are clear. Oropharynx with no redness, swelling, or masses, exudates, or evidence of obstruction, uvula midline. Mucous membranes moist. Chest/axilla: Normal chest wall appearance and motion. Nontender with no deformity. No lesions are appreciated. Cardiovascular: Regular rate and rhythm with a normal S1 and S2. No gallops, murmurs, or rubs. Normal PMI, no JVD. No pulse deficits. Respiratory: Lungs have equal breath sounds bilaterally, clear to auscultation and percussion. No rales, rhonchi or wheezes noted. No increased work of breathing, no retractions or nasal flaring. Abdomen/GI: Soft, non-tender, with normal bowel sounds. No distension or tympany. No guarding or rebound. No evidence of tenderness throughout. Back: No spinal tenderness. No costovertebral tenderness. Full range of motion. Skin: Warm, dry with normal turgor. Normal color with no rashes, no lesions, and no evidence of cellulitis. MS/ Extremity: Pulses equal, no cyanosis. Neurovascular intact. Full, normal range of motion. Neuro: Awake and alert, GCS 15, oriented to person, place, time, and situation. Cranial nerves II-XII grossly intact. Motor strength 5/5 in all extremities. Sensory grossly intact. Cerebellar exam normal. Normal gait. 21:39 Constitutional: The patient appears alert, awake. 21:39 Head/face: Noted is a laceration(s), that is deep, 6 cm(s), of the inner aspect of left eyebrow, middle aspect of left eyebrow and outer aspect of left eyebrow. 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 Vital Signs: 18:24 BP 147 / 64; Pulse 78; Resp 22; Temp 97.5; Pulse Ox 96% on R/A; Weight 63.5 kg; Height 6 ft. 1 in. (185.42 cm); Pain 3/10; 19:30 BP 135 / 56; Pulse 74; Resp 16; Temp 98; Pulse Ox 98% on R/A; rr5 20:30 BP 118 / 65; Pulse 73; Resp 17; Pulse Ox 99% on R/A; cc3 21:24 BP 141 / 88; Pulse 75; Resp 18; Pulse Ox 98% on R/A; rr5 18:24 Body Mass Index 18.47 (63.50 kg, 185.42 cm) [place] Coma Score: 18:24 Eye Response: spontaneous(4). Verbal Response: oriented(5). Motor Response: obeys ch commands(6). Total: 15. Trauma Score (Adult): 18:24 Eye Response: spontaneous(1); Verbal Response: oriented(1); Motor Response: obeys ch commands(2); Systolic BP: > 89 mm Hg(4); Respiratory Rate: 10 to 29 per min(4); Travis Score: 15; Trauma Score: 12 Laceration: 21:39 Wound Repair of 6cm ( 2.4in ) subcutaneous laceration to inner aspect of left eyebrow gs and outer aspect of left eyebrow. Distal neuro/vascular/tendon intact. Anesthesia: Local anesthetic administered with 3 mls of 1% lidocaine w/ Epi. Wound prep: Simple cleansing with betadine, Wound irrigation with saline by me. Skin closed with 6 4-0 Prolene using simple sutures and sterile technique. Patient tolerated well. MDM: 18:23 Patient medically screened. gs 21:39 Differential diagnosis: closed head injury, contusion, fracture, laceration. Data gs reviewed: vital signs, nurses notes. Counseling: I had a detailed discussion with the patient and/or guardian regarding: the historical points, exam findings, and any diagnostic results supporting the discharge/admit diagnosis, the need for outpatient follow up. Response to treatment: the patient's symptoms have markedly improved after treatment, and as a result, I will discharge patient. 07/27 18:29 Order name: Basic Metabolic Panel 07/27 18:29 Order name: CBC with Diff 07/27 18:29 Order name: CPK 07/27 18:29 Order name: Protime (+inr) 07/27 18:29 Order name: Urine Microscopic Only 07/27 19:29 Order name: Urine Dipstick--Ancillary (enter results) ds4 07/27 19:48 Order name: Glucose, Ancillary Testing; Complete Time: 20:53 EDMS 07/27 18:29 Order name: Accucheck; Complete Time: 19:36 07/27 18:29 Order name: CT Head C Spine 07/27 18:29 Order name: CT Chest Abdomen Pelvis W/O Contrast 07/27 19:24 Order name: CT; Complete Time: 20:53 EDMS 07/27 19:25 Order name: RAD; Complete Time: 20:53 EDMS 07/27 19:48 Order name: CBC with Automated Diff; Complete Time: 20:53 [facility] 07/27 19:48 Order name: Protime (+INR); Complete Time: 20:53 [facility] 07/27 20:05 Order name: Basic Metabolic Panel; Complete Time: 20:53 [facility] 07/27 20:05 Order name: Creatine Phosphokinase; Complete Time: 20:53 [facility] 07/27 20:07 Order name: CBC Smear Scan; Complete Time: 20:53 [facility] 07/27 20:15 Order name: Urine Dipstick-Ancillary; Complete Time: 20:53 [facility] 07/27 20:18 Order name: Urine Microscopic Only; Complete Time: 20:53 [facility] 07/27 18:29 Order name: Cardiac monitoring; Complete Time: 19:37 07/27 18:29 Order name: EKG - Nurse/Tech; Complete Time: 19:14 07/27 18:29 Order name: IV Saline Lock - Large Bore; Complete Time: 19:37 07/27 18:29 Order name: Labs collected and sent; Complete Time: 19:36 07/27 18:29 Order name: O2 Per Protocol; Complete Time: 19:36 07/27 18:29 Order name: O2 Sat Monitoring; Complete Time: 19:36 07/27 18:29 Order name: Urine Dipstick-Ancillary (obtain specimen); Complete Time: 19:28 gs Administered Medications: Discontinued: NS 0.9% 1000 ml IV at 1 bolus Per protocol; 1000 mL bolus 21:01 CANCELLED (Other Intervention Used): Lidocaine-Epinephrine -1%: (1:100,000) 1 vials 20 rr5 ml Infiltration once; to bedside 21:20 Drug: NS 0.9% 1000 ml Route: IV; Rate: 1 bolus; Site: right forearm; rr5 22:40 Follow up: Response: No adverse reaction; Other; IV Status: Order to discontinue rr5 infusion; IV Intake: 300ml ; discharged 21:50 Drug: Lidocaine-Epinephrine -2 % (1:100,000) 10 ml Route: Infiltration; rr5 22:40 Follow up: Response: No adverse reaction rr5 Point of Care Testing: Blood Glucose: 19:35 Blood Glucose: 100 mg/dL; lp1 Ranges: Critical Glucose Levels:Adult <50 mg/dl or >400 mg/dl <40 mg/dl or >180 mg/dl Disposition: 07/27/18 21:41 Discharged to Home. Impression: Laceration without foreign body of other part of head. - Condition is Stable. - Discharge Instructions: Laceration Care, Adult, [id number]. - Prescriptions for Keflex 500 mg Oral Capsule - take 1 capsule by ORAL route every 12 hours for 5 days; 10 capsule. - Medication Reconciliation Form, Thank You Letter, Antibiotic Education, Prescription Opioid Use form. - Follow up: Private Physician; When: 5 - 6 days; Reason: Staple/Suture removal, Re-evaluation by your physician. Signatures: Dispatcher [employer] EDMS Chiquis Callejas RN RN Mateo Dudley MD MD Sushant Mata RN RN rr5 Corrections: (The following items were deleted from the chart) 18:52 18:29 Misc. Order ordered. [facility] 21:01 20:59 Lidocaine-Epinephrine -1%: (1:100,000) 1 vials 20 ml Infiltration once; to rr5 bedside ordered. rr5 21:42 21:41 07/27/2018 21:41 Discharged to Home. Impression: Laceration without foreign body gs of other part of head. Condition is Stable. Forms are Medication Reconciliation Form, Thank You Letter, Antibiotic Education, Prescription Opioid Use. Follow up: Private Physician; When: 2 - 3 days; Reason: Re-evaluation by your physician. 22:48 21:42 07/27/2018 21:41 Discharged to Home. Impression: Laceration without foreign body rr5 of other part of head. Condition is Stable. Discharge Instructions: Laceration Care, Adult, [id number]. Forms are Medication Reconciliation Form, Thank You Letter, Antibiotic Education, Prescription Opioid Use. Follow up: Private Physician; When: 5 - 6 days; Reason: Staple/Suture removal, Re-evaluation by your physician.
[2018-07-27 23:55] VITALS: TEMP 98
[2018-07-27 23:57] VITALS: BP 141/88; O2SAT 98
--- NOTE | 2018-07-28 09:36 | EKG ---
Test Date: 2018-07-27 Test Time: 19:11:59 Housing Installer: VIDYA MEASUREMENT RESULTS: Intervals: Rate: 74 HI: 148 QRSD: 94 QT: 408 QTc: 452 [place]: P: 85 HI: 148 QRS: -2 T: 57 INTERPRETIVE STATEMENTS: Normal sinus rhythm Normal ECG Compared to ECG 06/19/2018 11:11:28 Atrial premature complex(es) no longer present T-wave abnormality no longer present Possible ischemia no longer present Electronically Signed On 07-28-18 09:35:23 COLOR DEVELOPER by Steve Hernadez
== END 2018-07-27 22:48 | disposition home or self-care (01) ==
LOC: ER 18:11
PROC: 0JQ10ZZ Repair Face Subcutaneous Tissue and Fascia, Open Approach (ICD-10-PCS; principal; 2018-07-27)
DX: S01.112A Laceration without foreign body of left eyelid and periocular area, initial encounter (principal); W19.XXXA Unspecified fall, initial encounter; Y93.9 Activity, unspecified; Y92.9 Unspecified place or not applicable; Z85.810 Personal history of malignant neoplasm of tongue; Z85.118 Personal history of other malignant neoplasm of bronchus and lung; Z85.828 Personal history of other malignant neoplasm of skin; E03.9 Hypothyroidism, unspecified
CPT/HCPCS: 12014; 36415; 70450; 71250; 72125; 72170; 80048; 82550; 82962; 85025; 85610; 93005; J7030; 81003; 81015; 96360; 99285

== ENCOUNTER 2018-08-11 11:07 | Emergency (ER) | payer OTHER ==
[2018-08-11] MEDS ORDERED: NA CHLORIDE 0.9% 0 ML ONE (11:20)
[2018-08-11] MEDS ORDERED: NOREPINEPHRINE 4mg/D5W 250mL 0 MG/0 ML BAG IV ONE (11:21)
--- NOTE | 2018-08-11 11:44 | ER ---
Nurse's Notes [facility] Name: Ciro Solano Age: 83 yrs Sex: Male : 1935 Arrival Date: 08/11/2018 Time: 11:09 Bed 3 Private MD: Diagnosis: Cardiac arrest Presentation: 08/11 11:02 Presenting complaint: EMS states: pt lives at home on Hosp[facility], no DNR in place, pt sv found by daughter supine on his bed, unknown downtime. On EMS arrival, pt was asystole, CPR started by EMS \T\ 1018, Epinephrine given \T\ 1035, 1039, 1047, Sodium bicarb given x1, ROSC \T\ 1050, BS-64, IV left FA, pupils fixed and dilated, intubated size-7.0, lungs CTA. Transition of care: patient was not received from another setting of care. Onset of symptoms was August 11, 2018. Care prior to arrival: Oral intubation, CPR via thumper performed by EMS IV initiated. 22 GA, in the left forearm, Glucose check: 64 Oxygen administered. via AMBU bag. 11:02 Method Of Arrival: EMS: [facility] sv 11:02 Acuity: GOPAL 1 sv Triage Assessment: 11:02 General: Appears ill, emaciated, Behavior is unresponsive. Pain: Unable to use pain sv scale. Patient is intubated. Patient is unresponsive. Neuro: Level of Consciousness is unresponsive, intubated. Pupils are fixed, dilated. Cardiovascular: Rhythm is sinus rhythm. Respiratory: Airway via oral intubation. Derm: bandaids noted to bilateral arms, bruising noted to bilateral knees. Historical: - Allergies: 11:22 NKA; sv - PMHx: 11:22 HOSPICE CARE; Hypothyroidism; Lung Cancer; Rheumatoid Arthritis; skin cancer; Tongue sv Cancer; COPD; Assessment: 11:02 General: Behavior is unresponsive. Pain: Unable to use pain scale. Patient is ca1 unresponsive. Neuro: Level of Consciousness is unresponsive, Pupils are fixed, dilated. Cardiovascular: Heart tones S1 S2 present Pulses are 3+ in right radial artery, right femoral artery, left radial artery and left femoral artery Rhythm is regular. Respiratory: Airway via oral intubation Respiratory effort is no spontaneous respirations. Assisted respirations. Breath sounds are clear bilaterally. GI: Abdomen is flat. : Brief noted. Derm: Skin is dry, Skin is pale, Skin temperature is warm. 11:14 Reassessment: Patient's daughter at bedside speaking to CECI Osorio and Dr. Dudley ca1 and pt's daughter wishes to withdraw care now.. 11:36 Reassessment: Four agonal gasps noted from 1126 to 1134.. ca1 11:37 Reassessment: Central pulses absent, no spontaneous respirations noted, 0bpm on ca1 monitor, asystole on monitor, CECI Osorio at bedside. Pronounced at 1137 by CECI Osorio. Pt's daughter at bedside. . Vital Signs: 11:05 BP 56 / 32; Pulse 52; Resp 18 A; Pulse Ox 95% on ETT ambu; ca1 11:07 BP 52 / 37; Pulse 50; Resp 18 A; Temp 98.1(TE); Pulse Ox 97% on ETT ambu; ca1 11:09 Pulse 94; Resp 16 A; sv 11:10 BP 47 / 31; Pulse Ox 95% on ETT vent; sv 11:15 BP 61 / 45; Pulse 66; Resp 0 S; Pulse Ox 96% on R/A; ca1 11:21 BP 35 / 23; Pulse 48; Resp 0; Pulse Ox 78% on R/A; ca1 11:27 BP 33 / 24; Pulse 56; Resp 0; Pulse Ox 83% on R/A; ca1 11:37 BP 0 / 0; Pulse 0; Resp 0; Pulse Ox 0% on R/A; ca1 [place] Coma Score: 11:21 Eye Response: none(1). Verbal Response: none(1). Motor Response: none(1). Modifying jr8 Factors: Intubated. Total: 3. ED Course: 11:02 Patient arrived in ED. ca1 11:02 Maintain EMS IV. Dressing intact. Site clean \T\ dry. Gauge \T\ site: 22G left FA. sv 11:06 EKG done, by medical supply technician. reviewed by Mateo Dudely MD. vh 11:15 extubation completed by RT. ca1 11:16 Triage completed. sv 11:19 Cj Abreu PA is PHCP. jr8 11:19 Mateo Dudley MD is Attending Physician. jr8 11:20 Arm band placed on. sv 11:43 Cj Abreu PA is Pronouncing Provider. jr8 11:50 Police called and notified dispatch to please call the solution director. eb 11:53 Isidra Ramos, RN is Primary Nurse. ca1 11:54 Scientific Informatics Leader [employer] returned call. eb 12:04 spoke with Scientific Informatics Leader [employer], requests to consult hospice doctor to sign certificate, Dr. rosalba Driscoll notified, waiting stonework tracer back. 12:[address] Driscoll, states that she or Dr. Stauffer will sign certificate. iw 13:47 Primary Nurse role handed off by Isidra Ramos, KERRI ca1 Administered Medications: 11:09 Drug: D50W 25 ml {Note: given by Ankita MANNING.} Route: IVP; Site: left forearm; sv 12:28 Follow up: Response: No adverse reaction ca1 Point of Care Testing: Blood Glucose: 11:07 Blood Glucose: 50 mg/dL; sv Ranges: Outcome: 13:40 Discharged to [facility]. ca1 13:40 Condition: 13:43 Patient left the ED. ca1 Signatures: Caitie Chau RN RN sv Williams, Irene, RN RN iw Roszak, Josh, PA PA jr8 Petra Cohen Hazel Mcdonald RN RN tw2 Marta Pierre Isidra Ramos, KERRI RN ca1 Corrections: (The following items were deleted from the chart) 11:23 11:02 Presenting complaint: EMS states: pt lives at home on Hospice, no DNR, pt found sv my daughter supine on his bed, unknown downtime. On EMS arrival, pt was asystole, CPR started by EMS \T\ 1018, Epinephrine given \T\ 1035, 1039, 1047, Sodium bicarb given x1, ROSC \T\ 1050, BS-64, IV left FA, pupils fixed and dilated, intubated size-7.0, lungs CTA. sv 11:49 11:09 Patient arrived in ED. tw2 ca1 12:17 11:37 Reassessment: Central pulses absent, no spontaneous respirations noted, 0bpm on ca1 monitor, CECI Osorio at bedside. Pronounced at 1137 by CECI Osorio. Pt's daughter at bedside. . ca1 13:50 13:49 Patient left the ED. ca1 ca1
--- NOTE | 2018-08-11 11:44 | EDPHYS ---
Physician Documentation [facility] Name: Ciro Solano Age: 83 yrs Sex: Male : 1935 Arrival Date: 08/11/2018 Time: 11:09 Bed 3 Private MD: ED Physician Mateo Dudley HPI: 08/11 11:21 This 83 yrs old Male presents to ER via EMS with complaints of CPR with ROSC. jr8 11:21 Preceding the arrest, the patient was found down by family. The arrest occurred at [facility]. Pre-hospital course: The arrest was not witnessed by others. Bystanders at the scene did not perform CPR. EMS care prior to arrival: initiation of ACLS, peripheral IV, was successfully placed. intubation was successfully performed, oxygen, by BVM to assist ventilations. 100% by ET tube. ACLS details: Initial rhythm was asystole. The presenting rhythm is normal sinus rhythm. Airway: oral intubation, Medications given by EMS prior to arrival - Epinephrine IV x 3 doses, Response to therapy: return of rhythm, return of pulse. It is unknown whether or not the patient has had similar symptoms in the past. It is unknown whether or not the patient has recently seen a physician. Patient with active cancer history per EMS. On hospice but without DNR. Family on scene stated that the physician has not been able to sign off on one as of yet. Historical: - Allergies: 11:22 NKA; sv - PMHx: 11:22 HOSPICE CARE; Hypothyroidism; Lung Cancer; Rheumatoid Arthritis; skin cancer; Tongue sv Cancer; COPD; ROS: 11:21 Unable to obtain ROS due to patient is on ventilator. jr8 Exam: 11:21 Head/Face: Normocephalic, atraumatic. jr8 11:21 Cardiovascular: Regular rate and rhythm with a normal S1 and S2. No gallops, murmurs, or rubs. Normal PMI, no JVD. No pulse deficits. 11:21 Eyes: Pupils: are fixed and dilated, No reactivity with light reflex. 11:21 Respiratory: Breath sounds: rales, that are mild, are heard in the left upper lobe and left lower lobe, Respiratory rate: 16 on ventilator. No spontaneous respirations present 11:21 Abdomen/GI: Inspection: abdomen appears normal, Palpation: soft, in all quadrants, no distention or rigidity . 11:21 Skin: pale in appearance. warm to touch. Vital Signs: 11:05 BP 56 / 32; Pulse 52; Resp 18 A; Pulse Ox 95% on ETT ambu; ca1 11:07 BP 52 / 37; Pulse 50; Resp 18 A; Temp 98.1(TE); Pulse Ox 97% on ETT ambu; ca1 11:09 Pulse 94; Resp 16 A; sv 11:10 BP 47 / 31; Pulse Ox 95% on ETT vent; sv 11:15 BP 61 / 45; Pulse 66; Resp 0 S; Pulse Ox 96% on R/A; ca1 11:21 BP 35 / 23; Pulse 48; Resp 0; Pulse Ox 78% on R/A; ca1 11:27 BP 33 / 24; Pulse 56; Resp 0; Pulse Ox 83% on R/A; ca1 11:37 BP 0 / 0; Pulse 0; Resp 0; Pulse Ox 0% on R/A; ca1 [place] Coma Score: 11:21 Eye Response: none(1). Verbal Response: none(1). Motor Response: none(1). Modifying jr8 Factors: Intubated. Total: 3. MDM: 11:20 Patient medically screened. jr8 11:40 Data reviewed: vital signs, nurses notes, EKG. Data interpreted: Pulse oximetry: on jr8 ventilator is 100 %. Counseling: I had a detailed discussion with the patient and/or guardian regarding: the historical points, exam findings, and any diagnostic results supporting the discharge/admit diagnosis. ED course: Patient pronounced at 11:37 am. . ED course: Shortly after patient arrived. Daughter of patient and her arrived. We spoke to them about patient condition and rapid deterioration even after having ACLS performed. Family wishes to withdraw all care at this time understanding that he will pass away. 1204 13:48 Order name: glucometer results - FOR PT WITH NO ID ca1 Administered Medications: 11:09 Drug: D50W 25 ml {Note: given by Ankita MANNING.} Route: IVP; Site: left forearm; sv 12:28 Follow up: Response: No adverse reaction ca1 Point of Care Testing: Blood Glucose: 11:07 Blood Glucose: 50 mg/dL; sv Ranges: Critical Glucose Levels:Adult <50 mg/dl or >400 mg/dl <40 mg/dl or >180 mg/dl Disposition: 11:40 . jr8 Disposition: Patient pronounced on 08/11/18 11:37 by Cj Abreu. Impression: Cardiac arrest. - Released to Home. Addendum: 08/13/2018 19:07 Co-signature as Attending Physician, Mateo Dudley MD. g s Signatures: Dispatcher [employer] Caitie Farias RN RN Cj Abreu, PA PA jr8 Mateo Dudley MD MD Isidra Ramos RN RN ca1 Corrections: (The following items were deleted from the chart) 08/11 13:43 11:43 08/11/2018 11:43 Patient pronounced on 08/11/2018 at 11:37 by Cj Abreu. ca1 Impression: Cardiac arrest. Released to Home. jr8 13:49 13:43 08/11/2018 11:43 Patient pronounced on 08/11/2018 at 11:37 by Cj Abreu. ca1 Impression: Cardiac arrest. Released to Home. ca1
[2018-08-11 13:48] VITALS: TEMP 98.1
[2018-08-11 13:57] VITALS: BP 0/0; O2SAT 0
--- NOTE | 2018-08-11 22:42 | EKG ---
Test Date: 2018-08-11 Test Time: 11:06:34 Reliner: SENG MEASUREMENT RESULTS: Intervals: Rate: 93 WA: 138 QRSD: 100 QT: 400 QTc: 497 [place]: P: 74 WA: 138 QRS: -36 T: 89 INTERPRETIVE STATEMENTS: Normal sinus rhythm Low voltage QRS Nonspecific T wave abnormality Prolonged QT Abnormal ECG Compared to ECG 07/27/2018 19:11:59 Low QRS voltage now present T-wave abnormality now present Prolonged QT interval now present Electronically Signed On 08-11-18 22:41:58 [employer] MECHANIC by Richard Tellez
== END 2018-08-11 13:49 | disposition expired ==
LOC: ER 11:07
DX: I46.9 Cardiac arrest, cause unspecified (principal); C34.90 Malignant neoplasm of unspecified part of unspecified bronchus or lung
CPT/HCPCS: 36415; 82962; 93005; 96374; 99291; J7030